=== PATIENT | female | born 1970 | race Caucasian/White ===

== ENCOUNTER 2016-11-29 01:39 | Emergency (ER) | payer SELFPAY ==
--- NOTE | ~2016-11-29 | CR72 ---
[facility] A Service of [facility] & [facility] RADIOLOGY TEXT RESULTS PATIENT: JENNIFER DOHERTY LOCATION: [facility] : 72 UNIT #: [id number] AGE: [address]: Boogie Pereira MD SEX: F ORDER DR: [id number] [facility] [address] [place], [place] [address] [id number] MR#: [id number] Acc #: [id number] NAME: JENNIFER DOHERTY : 1970 SEX: F STUDY DATE/TIME: 11/29/2016 0129 UNIT: [facility] ROOM: STUDY DESCRIPTION: CR Chest Single View Portable Attending Physician: Boogie Pereira M.D. Ordering Physician: Ed Doc Nicolasa Anaya Primary Care Physician: No Primary Care Physician MEDICAL IMAGING REPORT This report is preliminary unless electronic signature is present EXAM Portable chest, 11/29 at 0129 INDICATION Shortness of air, congestion, and chest pain today. COMPARISON STUDIES Comparison, 10/03/2011. FINDINGS A single AP portable view of the chest shows both lungs to be clear. The heart is normal in size. The mediastinal contour is normal. No significant bone abnormalities are seen. IMPRESSION Normal portable chest. Dictated by... Christ Downs Jr., M.D. THIS IS AN ELECTRONICALLY VERIFIED REPORT Christ Downs Jr., M.D. at 11/29/2016 12:38 PM SHMUEL/tash TD: 11/29/2016 09:43 JOB #: [id number] MEDICAL IMAGING REPORT Page 1 of 1 COPY
--- NOTE | ~2016-11-29 | EKG ---
PATIENT: JENNIFER DOHERTY UNIT #: [id number] Ventricular Rate: 102 BPM Atrial Rate: 102 BPM P-R Interval: 168 ms QRS Duration: 82 ms Q-T Interval: 346 ms QTC Calculation(Bezet): 450 ms P [place]: 74 degrees Calculated R [place]: 54 degrees Calculated T [place]: 55 degrees Diagnosis Line: Sinus tachycardia Diagnosis Line: Nonspecific ST abnormality Diagnosis Line: Borderline ECG Diagnosis Line: When compared with ECG of 26-OCT-2011 19:47, Diagnosis Line: No significant change was found Diagnosis Line: Confirmed by KATIE ADKINS MD ([id number]) on 11/30/2016 Diagnosis Line: 4:30:09 PM INTERPRETING MD: JED MANTILLA
[~2016-11-29 01:39] MED LIST: ACETAMINOPHEN PO; ALBUTEROL17 G1 IH; AMBIEN10 MG PO; AZITHROMYCIN250 MG PO; CHILDREN'S CLARI5 MG PO; DARVOCET-N 1001 TAB PO; DICLOFENAC PO; FLEXERIL10 MG PO; IBUPROFEN PO; LORTAB 7.5-5001 TAB PO; MOBIC15 MG PO; MULTIVITAMIN1 UDCAP; NEURONTIN PO; NORCO 5/325 TAB1 TAB PO; PERCOCET 10/3251 TAB PO; PERCOCET 5-3251 TAB PO; PHENERGAN PO; TYLOX 5/500 CAP1 CAP PO; ULTRAM PO; VIBRAMYCIN100 M1 PO; VICODIN 5/1 TAB 5/50 PO; VICODIN 5/500 T1 TAB PO; VOLTAREN75 MG PO
[2016-11-29 02:08] LABS: BASOPHIL% 0.1 % (0-2.5); EOSINOPHIL# 0.1 X10e3 (0-0.7); EOSINOPHIL% 0.7 % (0.0-7.0); HEMATOCRIT 42.1 % (35.0-45.0); LYMPHOCYTE# 1.9 X10e3 (1.0-3.5); LYMPHOCYTE% 16.9 % (17.0-45.0); MEAN CELL VOLUME 101.1 FL (83-96); MEAN CORPUSCULAR HEMOGLOBIN 33.5 PG (28-34); MEAN CORPUSCULAR HGB CONC 33.2 g/dL (30-36); MEAN PLATELET VOLUME 7.5 FL (6.5-11.5); MONOCYTE# 0.7 X10e3 (0-1.0); MONOCYTE% 6.1 % (3.0-12.0); NEUTROPHIL# 8.5 X10e3 (1.5-7.1); NEUTROPHIL% 76.2 % (40-75); PLATELET COUNT 195 X10e3 (140-420); RED BLOOD COUNT 4.16 X10e (3.90-5.30); RED CELL DISTRIBUTION WIDTH 12.3 % (11.0-15.5); WHITE BLOOD COUNT 11.1 X10e3 (4.0-10.5)
[2016-11-29 02:12] LABS: DIFF IND NO
[2016-11-29 02:23] LABS: POC - CKMB 1.5 ng/mL (0.0-7.9); POC - TROPONIN <0.05 ng/mL (<=0.05)
[2016-11-29 02:29] LABS: ACETAMINOPHEN 20 ug/mL; ALBUMIN SERUM 4.3 g/dL (3.5-5.0); ALKALINE PHOSPHATASE 76 U/L (32-92); ALT (SGPT) 31 U/L (10-40); AST (SGOT) 38 U/L (10-42); BILIRUBIN, DIRECT 0.1 mg/dL (0.0-0.2); BILIRUBIN,INDIRECT 0.5 mg/dL (0.0-0.9); BILIRUBIN,TOTAL 0.6 mg/dL (0.2-2.0); BLOOD UREA NITROGEN 14 mg/dL (9-23); BUN/CREATININE RATIO 23.33; CALCIUM SERUM 8.7 mg/dL (8.4-10.2); CARBON DIOXIDE 22 mmol/L (22-31); CHLORIDE 101 mmol/L (100-111); CREATININE SERUM 0.6 mg/dL (0.6-1.4); GLOM FILT RATE Estimated 110.1 mL/min (>60); GLUCOSE FASTING 107 mg/dL (70-110); POTASSIUM 3.6 mmol/L (3.5-5.1); SALICYLATE <4.0 mg/dL; SODIUM 136 mmol/L (135-145)
[2016-11-29 02:32] LABS: ALCOHOL BLOOD 150 mg/dL ([, 0])
[2016-11-29 03:56] LABS: AMPHETAMINE NEG (NEG); BARBITURATES NEG (NEG); BENZODIAZEPINES NEG (NEG); COCAINE NEG (NEG); MARIJUANA NEG (NEG); OPIATES POS (NEG); TRICYCLIC ANTIDEPRESSANTS NEG (NEG); U METHADONE NEG (NEG)
[2016-11-29 04:12] LABS: POC - CKMB 1.1 ng/mL (0.0-7.9); POC - TROPONIN <0.05 ng/mL (<=0.05)
== END 2016-11-29 05:34 | disposition home or self-care (01) ==
LOC: CED 01:39
PROVIDERS: Emergency Medicine
DX: J96.00 Acute respiratory failure, unspecified whether with hypoxia or hypercapnia (principal); T40.1X1A Poisoning by heroin, accidental (unintentional), initial encounter; R07.89 Other chest pain; R56.9 Unspecified convulsions; Z90.710 Acquired absence of both cervix and uterus; Z88.2 Allergy status to sulfonamides; Z88.1 Allergy status to other antibiotic agents; Z88.5 Allergy status to narcotic agent; F17.200 Nicotine dependence, unspecified, uncomplicated
CPT/HCPCS: 36415; 71010; 80048; 80076; 80307; 82553; 84484; 85025; 93005; 96374; 99284; G0480